=== PATIENT | male | born 1985 | race Caucasian/White ===

== ENCOUNTER 2021-03-01 06:12 | Emergency (ER) | payer BC, SELFPAY ==
[2021-03-01 06:12] VITALS: BP 133/64; PULSE 91; RESP 18; TEMP 36.5; O2SAT 99
--- NOTE | 2021-03-01 06:25 | ECG_ITS ---
Measurements Intervals [place] Rate: 94 P: 23 [place]: 124 QRS: 54 QRSD: 101 T: 5 QT: 376 QTc: 470 Interpretive Statements SINUS RHYTHM POSSIBLE LEFT ATRIAL ENLARGEMENT BORDERLINE ST-T WAVE ABNORMALITY- INFERIOR LEADS BORDERLINE ECG Electronically Signed On 03-01-2021 6:41:36 UTILITY LOCATE TECHNICIAN by Kee Marte D.O.
[2021-03-01 06:49] LABS: Basophils Percent Auto 0.2 % (0.2-1.2); Eosinophils Absolute Auto 0.1 K/mm3 (0-0.3); Eosinophils Percent Auto 1.4 % (0-4.4); Hematocrit 45.3 % (42.0-52.0); Hemoglobin 15.7 g/dL (14.0-18.0); Immature Granulocyte Absolute 0.01 K/mm3 (0.00-0.031); Immature Granulocyte Percent A 0.2 % (0-0.5); Lymphocytes Absolute Auto 1.74 K/mm3 (0.9-3.2); Lymphocytes Percent Auto 40.3 % (18.3-44.2); Mean Corpuscular HGB Conc 34.7 g/dl (32-36); Mean Corpuscular Hemoglobin 29.3 pg (26-34); Mean Corpuscular Volume 84.5 fl (80-100); Mean Platelet Volume 8.9 fl (7.4-10.4); Monocytes Absolute Auto 0.3 K/mm3 (0.1-0.6); Monocytes Percent Auto 6.9 % (2.6-8.5); Neutrophils Absolute Auto 2.2 K/mm3 (1.3-6.7); Platelet Count Result 229 k/mm3 (150-375); Red Blood Count 5.36 M/mm3 (4.6-6.20); Red Cell Distribution Width 12.7 % (11.5-14.5); White Blood Count 4.3 K/mm3 (4.5-10.0)
[2021-03-01 07:03] LABS: Alanine Aminotransferase 50 U/L (4-50); Albumin Level 4.5 g/dL (3.5-5.1); Alkaline Phosphatase 79 U/L (38-126); Anion Gap 14 mmol/L (8-16); Aspartate Amino Transferase 45 U/L (17-59); Bilirubin,Total 0.5 mg/dL (0.2-1.3); Blood Urea Nitrogen 21 mg/dL (9-20); Calcium 8.7 mg/dL (8.4-10.2); Carbon Dioxide 21 mmol/L (22-30); Chloride 104 mmol/L (98-107); Estimated CRCL calculation 74 ml/min; Estimated Glomerular Filt Rate > 60; Glucose 90 mg/dL (65-110); Potassium 3.8 mmol/L (3.4-5.0); Sodium 139 mmol/L (137-145)
--- NOTE | 2021-03-01 07:11 | ED.SEIZURE ---
HPI - Seizure General Chief Complaint: Seizure Stated Complaint: seizure Time Seen by Provider: 03/01/21 07:06 Source: patient Mode of arrival: EMS Limitations: no limitations History of Present Illness HPI Narrative: Patient is a 35-year-old male brought in by EMS due to seizure, one episode, witnessed, lasted for few minutes with postictal confusion. According the patient he was at the gym when the seizure happened. Patient states that last time he had a seizure was 5 years ago. Patient had been asymptomatic prior to the seizure. Patient admits to not sleeping well for the past week since he has been at the hospital watching his son and this is what he thinks causes seizure, lack of sleep. Patient is alert awake and oriented x4 and has no complaints at this time. Patient states that he has been compliant with his medication and no dose changes recently. Denies any headache, dizziness, speech or visual disturbance, focal weakness or numbness, neck pain or stiffness, chest pain, shortness of breath, abdominal pain, nausea, vomiting, diarrhea, fever or chills. Seizure History: Yes Related Data Home Medications Medication Instructions Recorded Confirmed zonisamide [Zonegran] 100 mg PO TID 03/01/21 Allergies Allergy/AdvReac Type Severity Reaction Status Date / Time No Known Allergies Allergy Verified 03/01/21 06:19 Review of Systems Review of Systems: All systems reviewed & are unremarkable except as noted in HPI and below Constitutional: Constitutional: Denies body ache(s), Denies chills, Denies excessive sweating, Denies fatigue, Denies fever(s), Denies headache(s), Denies lethargy, Denies malaise, Denies weakness and Denies weight loss Eyes: Eyes: Denies blurry vision, Denies change in vision and Denies loss of vision ENT: Denies dizziness, Denies ear discharge, Denies headache(s), Denies lip swelling, Denies epistaxis, Denies nasal congestion, Denies neck pain, Denies throat swelling and Denies tongue swelling Cardiovascular: Cardiovascular: Denies chest pain, Denies chest pain at rest, Denies chest pain with activity, Denies diaphoresis, Denies rapid heart rate, Denies edema, Denies irregular heart rhythm, Denies lightheadedness, Denies palpitations, Denies dyspnea and Denies dyspnea on exertion Respiratory: Respiratory: Denies chest congestion, Denies cough, Denies hemoptysis, Denies dyspnea and Denies dyspnea on exertion Gastrointestinal: Gastrointestinal: Denies abdominal pain, Denies melena, Denies hematochezia, Denies diarrhea, Denies nausea, Denies vomiting and Denies hematemesis Musculoskeletal: Musculoskeletal: Denies abnormal gait, Denies deformity, Denies joint swelling, Denies limited range of motion, Denies neck pain and Denies numbness Neurologic: Denies Abnormal speech present, Denies abnormal gait, Denies confusion, Denies dizziness, Denies headache(s), Denies focal weakness, Denies loss of vision, Denies numbness, Denies Other visual disturbances, Denies Sensory deficit (Neuro) and Denies weakness Psychiatric: Psychiatric: Denies confusion, Denies depression, Denies auditory hallucinations, Denies homicidal ideation and Denies suicidal ideation Endocrine: Endocrine: Denies cold intolerance, Denies excessive sweating, Denies fatigue, Denies heat intolerance and Denies palpitations Hematologic/Lymphatic: Hematologic/Lymphatic: Denies easy bleeding and Denies easy bruising Allergic/Immunologic: Allergic/Immunologic: Denies lip swelling, Denies throat swelling and Denies tongue swelling PMFSH Past Medical History Medical History BMI 27.0-27.9,adult Family History Family History Father Diabetes mellitus Mother No problems noted. Sibling No problems noted. Social History Social History Smoking status: Never smoker Second h
[2021-03-01 07:12] VITALS: BP 135/77; PULSE 84; RESP 16; O2SAT 100
--- NOTE | 2021-03-01 07:12 | PC.NURSE ---
asked pt for urine sample. pt states he cannot go at this time. pt declining straight catheter.
[2021-03-01] MEDS: SODIUM CHLORIDE 0.9% IV 1,000 ML 999 ML IV CONT (07:32)
[2021-03-01 07:44] LABS: Add Urine Microscopic? YES; Appearance Urine Clear (Clear); Bilirubin Urine Negative (Negative); Blood Urine Negative (Negative); Color Urine Yellow (Yellow); Glucose Urine UA Negative (Negative); Ketones Urine Negative (Negative); Leukocyte Esterase Ur Negative LEU/UL (Negative); Mucus Urine Rare /lpf; Nitrate Urine Negative (Negative); Protein Urine 1+ mg/dL (Negative); RBC Urine 0-2 /hpf (0-2); Specific Grav Ur 1.018 (1.001-1.035); Squamous Epithelial Cell Urine Rare /hpf (Few); Urobilinogen Urine Negative mg/dL (<2.0); WBC Urine 0-3 /hpf
[2021-03-01 08:07] VITALS: BP 125/64; PULSE 73; RESP 16; O2SAT 100
[2021-03-01 09:22] VITALS: BP 128/75; PULSE 67; RESP 13; O2SAT 100
== END 2021-03-01 09:24 | disposition home or self-care (01) ==
PROVIDERS: Emergency Medicine; Emergency Provider Emergency Medicine; PCP Family Medicine
DX: R56.9 Unspecified convulsions (principal); R94.31 Abnormal electrocardiogram [ECG] [EKG]
CPT/HCPCS: 36415; 80053; 81001; 85025; 93005; 96360; 99283; J7030

== ENCOUNTER 2024-03-02 18:14 | Emergency (ER) | payer BC, SELFPAY ==
--- NOTE | ~2024-03-02 | XR_ITS ---
XR ankle LT min 3V Ordering provider: Maria Esther Delacruz PA-C History: . left ankle pain, injury . Comparison: None. FINDINGS: BONES: No acute fracture or dislocation. JOINT SPACES: The ankle mortise is normal. SOFT TISSUES: Normal. IMPRESSION: No acute osseous abnormality left ankle. Reviewed, dictated and finalized at location A. NAGE INSPECTOR
[2024-03-02 18:29] VITALS: BP 145/80; PULSE 65; RESP 16; TEMP 36.4; O2SAT 100
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
--- NOTE | 2024-03-02 22:25 | PC.NURSE ---
2151 Patient wheeled past desk and states we are leaving. Patient left ED before risks of leaving before being seen by a provider and benefits of staying could be given. Patient wheeled out of ED by visitor with belongings in hand.
== END 2024-03-02 22:27 | disposition left against medical advice (07) ==
LOC: ANHED 21:57
PROVIDERS: Emergency Provider Physician Assistant; PCP Family Medicine
DX: S93.402A Sprain of unspecified ligament of left ankle, initial encounter (principal); W23.0XXA Caught, crushed, jammed, or pinched between moving objects, initial encounter; G40.909 Epilepsy, unspecified, not intractable, without status epilepticus
CPT/HCPCS: 73610; 99283